=== PATIENT | male | born 1985 | race Caucasian/White ===

== ENCOUNTER 2022-09-17 21:10 | Emergency (ER) | payer BC, OTHER ==
[2022-09-17 21:45] LABS: BILIRUBIN,URINE NEGATIVE (NEGATIVE); GLUCOSE, URINE (UA) NEGATIVE (NEGATIVE); KETONES,URINE (UA) NEGATIVE (NEGATIVE); LEUKOCYTE ESTERASE, URINE NEGATIVE (NEGATIVE); NITRITE,URINE NEGATIVE (NEGATIVE); OCCULT BLOOD,URINE NEGATIVE (NEGATIVE); PH,URINE 6.5 PH (5.0-7.5); PROTEIN,URINE NEGATIVE (NEGATIVE); UROBILINOGEN,URINE 0.2 (NORMAL) E.U./dL (NORMAL)
[2022-09-17 21:46] LABS: BASOPHILS % (AUTO) 0.7 %; EOSINOPHILS # (AUTO) 0.1 10^3/uL (0.0-0.7); EOSINOPHILS % (AUTO) 1.6 %; HCT - HEMATOCRIT 46.8 % (42.0-52.0); HGB - HEMOGLOBIN 15.9 g/dL (14.0-18.0); LYMPHOCYTES # (AUTO) 2.2 10^3/uL (1.5-3.5); LYMPHOCYTES % (AUTO) 35.5 %; MEAN CORPUSCULAR HEMOGLOBIN 30.5 pg (27.0-31.0); MEAN CORPUSCULAR VOLUME 89.7 fL (80.0-94.0); MEAN PLATELET VOLUME 9.3 fL (7.4-11.4); MONOCYTES # (AUTO) 0.6 10^3/uL (0.0-1.0); MONOCYTES % (AUTO) 9.7 %; NEUTROPHILS # (AUTO) 3.2 10^3/uL (1.5-6.6); NEUTROPHILS % (AUTO) 52.3 %; PLT - PLATELET COUNT 275 10^3/uL (130-450); RED BLOOD COUNT 5.22 10^6/uL (4.70-6.10); RED CELL DISTRIBUTION WIDTH 12.9 % (12.0-15.0); WHITE BLOOD COUNT 6.1 x10^3/uL (4.8-10.8)
[2022-09-17 21:48] LABS: CLARITY,URINE CLEAR (CLEAR)
[2022-09-17 22:02] LABS: ALBUMIN 4.8 g/dL (3.2-5.5); ALBUMIN/GLOBULIN RATIO 1.6 (1.0-2.2); BILIRUBIN,TOTAL 0.9 mg/dL (0.2-1.0); CALCIUM 9.1 mg/dL (8.5-10.3); POTASSIUM 3.5 mmol/L (3.5-5.0); TOTAL PROTEIN 7.8 g/dL (6.7-8.2)
--- NOTE | 2022-09-17 22:25 | ED Physician Documentation ---
PD HPI ABD PAIN - Stated complaint Stated Complaint: ABD PX - Chief complaint Chief Complaint: Abd Pain - History obtained from History obtained from: Patient - History of Present Illness Timing - onset: Today Timing - details: Gradual onset Pain level now: 5 Quality: Pain Location: Periumbilical, Suprapubic Radiation: Other (no radiation) Worsened by: Palpation Associated symptoms: Nausea. No: Fever, Vomiting, Diarrhea - Additional information Additional information: HPI from patient Patient underwent colonoscopy yesterday. He says he had an initial colonoscopy 10 years ago due to what he calls IBS symptoms, was found to have adenomatous polyps and thus was advised to have a colonoscopy every 10 years. He says that on yesterday's colonoscopy, a solitary polyp was found and removed. Patient says since having the colonoscopy he has had for meals and has had no bowel movement. His chief concern is gradually increasing abdominal pain, periumbilical and suprapubic in location, gradual onset this morning but steadily progressing throughout the day today. He notes mild nausea but no vomiting. He has not been passing gas. Review of Systems Constitutional: reports: Reviewed and negative Cardiac: reports: Reviewed and negative Respiratory: reports: Reviewed and negative GI: reports: Abdominal Pain, Nausea. denies: Abdominal Swelling, Vomiting, Diarrhea : denies: Dysuria PD PAST MEDICAL HISTORY - Past Medical History Past Medical History: No - Past Surgical History Past Surgical History: Yes General: Cholecystectomy, Colonoscopy - Present Medications Home Medications: Ambulatory Orders Medication Instructions Recorded Confirmed Levothyroxine Sodium 100 mcg PO DAILY 09/17/22 09/17/22 [Levothyroxine] - Allergies Allergies/Adverse Reactions: Allergies Allergy/AdvReac Type Severity Reaction Status Date / Time Pertussis Vaccines Allergy Anaphylaxis Verified 09/17/22 21:19 - Social History Does the pt smoke?: No Smoking Status: Never smoker Does the pt drink ETOH?: Yes ETOH Use: Beer Does the pt have substance abuse?: No - Immunizations Immunizations are current?: Yes - POLST Patient has POLST: No PD ED PE NORMAL - Vitals Vital signs reviewed: Yes - General General: Alert and oriented X 3, No acute distress, Well developed/nourished - HEENT HEENT: Moist mucous membranes - Cardiac Cardiac: RRR, No murmur - Abdomen Abdomen: Soft, Non distended, Other (Mild periumbilical and suprapubic tenderness to palpation without guarding or rebound. There are scant bowel sounds) - Back Back: No CVA TTP Results - Vitals Vitals: Vital Signs - 24 hr 09/17/22 09/17/22 09/18/22 21:15 23:50 00:49 Temperature 36.3 C L Heart Rate 74 67 59 L Respiratory 18 14 16 Rate Blood Pressure 120/80 104/66 105/70 O2 Saturation 98 97 97 09/18/22 01:48 Temperature 36.0 C L Heart Rate 64 Respiratory 16 Rate Blood Pressure 115/80 O2 Saturation 97 Oxygen O2 Source Room air - Labs Labs: Laboratory Tests 09/17/22 09/17/22 09/17/22 19:38 19:38 19:38 WBC 6.1 RBC 5.22 Hgb 15.9 Hct 46.8 MCV 89.7 MCH 30.5 MCHC 34.0 RDW 12.9 Plt Count 275 MPV 9.3 Neut # (Auto) 3.2 Lymph # (Auto) 2.2 Taliaferro # (Auto) 0.6 Eos # (Auto) 0.1 Baso # (Auto) 0.0 Absolute Nucleated RBC 0.00 Nucleated RBC % 0.0 Sodium 135 Potassium 3.5 Chloride 97 L Carbon Dioxide 28 Anion Gap 10.0 BUN 17 Creatinine 1.0 Estimated GFR (MDRD) 83 L Glucose 101 H Calcium 9.1 Total Bilirubin 0.9 AST 22 ALT 43 Alkaline Phosphatase 62 Total Protein 7.8 Albumin 4.8 Globulin 3.0 Albumin/Globulin Ratio 1.6 Lipase 30 Urine Color YELLOW Urine Clarity CLEAR Urine pH 6.5 Ur Specific Pierson 1.010 Urine Protein NEGATIVE Urine Glucose (UA) NEGATIVE Urine Ketones NEGATIVE Urine Occult Blood NEGATIVE Urine Nitrite NEGATIVE Urine Bilirubin NEGATIVE Urine Urobilinogen 0.2 (NORMAL) Ur Leukocyte Esterase NEGATIVE Ur Microscopic Review NOT INDICATED Urine Culture Comments NOT INDICATED - Rads (name of study) CT A/P with IV contrast Radiology: Prelim report reviewed, See rad report PD Medical Decision Making - ED course Complexity details: reviewed results, re-evaluated patient, considered differential, d/w patient Reviewed Lab Results: Blood work ordered and reviewed by me including CBC, ER abdominal panel, and urinalysis. There are no concerning findings on any of these tests. A CT of the abdomen and pelvis with intravenous contrast is ordered. Diagnoses considered include appendicitis (which would be completely incidental to yesterday's colonoscopy), bowel obstruction, bowel wall hematoma due to recent p rocedure. Also considered bowel perforation, but exam is strongly inconsistent with perforation. Localized, microperforation would still have to be considered, though quite unlikely; the CT study will help differentiate whether this is the cause of his symptoms or not. ED course: The CT scan does not show the etiology of patient's symptoms. Specifically, there is no evidence of acute inflammatory condition such as diverticulitis or appendicitis, no evidence of small bowel obstruction, no evidence of free air/microperforation. There is stool throughout the colon but not an unusual stool burden. Incidental note is made of diverticulosis without evidence of diverticulitis as well as a solitary hepatic lesion measuring 1.8 cm in greatest diameter. I reviewed these results with the patient. Instructed him to follow-up with his primary care provider for reevaluation for symptoms as well as possible further testing regarding this hepatic lesion. Departure - Departure Disposition: 01 Home, Self Care Clinical Impression: Abdominal pain Qualifiers: Abdominal location: periumbilical Qualified Code(s): R10.33 - Periumbilical pain Condition: Good Instructions: ED Abdominal Pain Unkn Cause Male, ED Diverticulosis Follow-Up: Malorie Connor MD [Primary Care Provider] - Comments: The results of tonight's tests do not show the cause of your symptoms. There are no concerning findings on the blood tests. The CT scan has 2 incidental findings that we discussed. The CT scan shows diverticulosis; this is a common and benign condition and discharge instructions regarding diverticulosis have been provided in this packet. Also noted on the CT scan is a small abnormality in the liver. The most common causes of this type of finding are benign, but you need to follow-up with your primary care provider to discuss this finding. Usually, a follow-up study after several weeks or months is undertaken to reevaluate such a finding. Discharge Date/Time: 09/18/22 01:55
[2022-09-17] MEDS ORDERED: iohexoL-300 100 ML VIAL ONE (22:51)
[2022-09-17] MEDS ORDERED: KETOROLAC 30 MG/ML VIAL IVP STA (22:54)
[2022-09-17] MEDS ORDERED: iohexoL-300 100 ML VIAL IVP ONE (23:25)
--- NOTE | 2022-09-18 01:21 | CT Report ---
PROCEDURE: ABDOMEN/PELVIS W INDICATIONS: suprapubic and periumbilical pain CONTRAST: Omni 300 100ml TECHNIQUE: After the administration of intravenous contrast, 5 mm thick sections acquired from the diaphragms to the symphysis. 5 mm thick coronal and sagittal reformats were acquired. For radiation dose reducti on, the following was used: automated exposure control, adjustment of mA and/or kV according to tarun ent size. COMPARISON: None. FINDINGS: Image quality: Excellent. Lung bases:There is mild dependent atelectasis bilaterally. Heart: Heart is normal in size. ABDOMEN: Liver:There is a hypoattenuating lesion within segment 7 of the right hepatic lobe adjacent to the i nferior vena cava measuring up to 1.8 x 1.2 cm in transverse dimension on series 3 image 17. Gallbladder: Within normal limits without calcified gallstones. Biliary ducts: No biliary ductal dilatation. Pancreas: Unremarkable. Spleen: Normal in size. Adrenal Glands: No adrenal nodules. Kidneys and Ureters: No hydronephrosis. Stomach and Bowel: Stomach, small bowel loops, and colon are normal in caliber and wall thickness. T he appendix is normal in appearance. There is colonic diverticulosis without acute diverticulitis. Peritoneum: No abnormal intraperitoneal fluid. No free air. Ventral Wall: No hernia. Abdominal Nodes: No retroperitoneal or mesenteric adenopathy by size criteria. Vessels: Aorta and inferior vena cava are normal in size. PELVIS: Pelvic Organs: Unremarkable. Bladder: Unremarkable. Pelvic Nodes: No enlarged lymph nodes. Miscellaneous: No inguinal hernias. Bones: Visualized osseous structures demonstrate no suspicious lesions. IMPRESSION: 1. No definite acute intra-abdominal abnormality. 2. Specifically, no evidence of acute appendicitis, hydronephrosis, or diverticulitis. 3. Nonspecific hypodense lesion within the right hepatic lobe. Recommend further evaluation with a no nemergent liver protocol MRI. Reviewed by: Daniel Brenner MD on 09/18/2022 1:19 AM PST Approved by: Daniel Brenner MD on 09/18/2022 1:19 AM PST Station ID: [id number]
[2022-09-18 01:58] VITALS: BP 115/80
== END 2022-09-18 01:55 | disposition home or self-care (01) ==
LOC: ED 21:10
DX: R10.33 Periumbilical pain (principal)
CPT/HCPCS: 36415; 74177; 80053; 81003; 83690; 85025; 96374; 99284; Q9967; 81001; 87086

== ENCOUNTER 2023-02-16 14:15 | Outpatient (CLI) | payer BC ==
--- NOTE | 2023-02-16 20:10 | XRAY Report ---
PROCEDURE: Foot 3 View LT INDICATIONS: SPRAIN OF THE LEFT ANKLE TECHNIQUE: 3 views of the foot were acquired. COMPARISON: Same day left ankle radiographs. FINDINGS: Bones: No fractures or dislocations. No suspicious bony lesions. Soft tissues: No suspicious soft tissue calcifications or masses. IMPRESSION: No acute osseous abnormality. Consider follow-up radiographs in 10-14 days. Reviewed by: Checo Bedolla MD on 02/16/2023 8:09 PM PDT Approved by: Checo Bedolla MD on 02/16/2023 8:09 PM PDT Station ID: [id number]
--- NOTE | 2023-02-16 20:13 | XRAY Report ---
PROCEDURE: Ankle 3 View LT INDICATIONS: SPRAIN OF THE LEFT ANKLE TECHNIQUE: 3 views of the ankle were acquired. COMPARISON: Same day left foot radiographs. FINDINGS: Bones: Irregularity at the lateral seen only on one projection. This could represent nondisplaced fr acture of the lateral calcaneus. No dislocations. Ankle mortise is normally aligned. No suspicious bony lesions. Soft tissues: No tibiotalar joint effusion. Achilles tendon appears normal. IMPRESSION: Question lateral calcaneus avulsion fracture seen only on one projection. Consider CT or MRI for further evaluation. Recommend follow-up radiographs in 10-14 days. Reviewed by: Checo Bedolla MD on 02/16/2023 8:12 PM PDT Approved by: Checo Bedolla MD on 02/16/2023 8:12 PM PDT Station ID: [id number]
== END 2023-02-16 14:30 | disposition home or self-care (01) ==
LOC: DI.N 14:15
PROVIDERS: ATTEND Physician Assistant Medical
DX: S93.402A Sprain of unspecified ligament of left ankle, initial encounter (principal); S99.922A Unspecified injury of left foot, initial encounter

== ENCOUNTER 2023-02-19 10:52 | Outpatient (CLI) | payer BC ==
--- NOTE | 2023-02-19 16:57 | CT Report ---
PROCEDURE: LOWER EXTREMITY WO - LT INDICATIONS: LEFT FOOT FX TECHNIQUE: Noncontrast 3-mm axial sections acquired from the distal tibial shaft to the talar dome, with coronal and sagittal reformats. For radiation dose reduction, the following was used: automated exposure c ontrol, adjustment of mA and/or kV according to patient size. COMPARISON: Plain films dated 02/16/2023 FINDINGS: Image quality: Excellent. Bones: There is a mildly displaced comminuted fracture of the superolateral aspect of the anterior p rocess of the calcaneus, corresponding to the plain film abnormality. Soft tissues: Grossly unremarkable Impression: 1. Calcaneal fracture. Reviewed by: Gena Melvin MD on 02/19/2023 4:56 PM PDT Approved by: Gena Melvin MD on 02/19/2023 4:56 PM PDT Station ID: [id number]
== END 2023-02-19 10:53 | disposition home or self-care (01) ==
LOC: DI 10:52
PROVIDERS: ATTEND Orthopaedic Surgery
DX: S92.155A Nondisplaced avulsion fracture (chip fracture) of left talus, initial encounter for closed fracture (principal)